=== PATIENT | male | born 2005 | race Caucasian/White ===

== ENCOUNTER 2023-09-23 13:04 | Emergency (ER) | payer OTHER ==
[~2023-09-23] VITALS: Ht 175.3 cm; Wt 61.2 kg
[2023-09-23 13:33] VITALS: BP 145/76
== END 2023-09-23 14:50 | disposition home or self-care (01) ==
LOC: ER 13:04
DX: J34.89 Other specified disorders of nose and nasal sinuses (principal); Y04.0XXA Assault by unarmed brawl or fight, initial encounter; Y92.810 Car as the place of occurrence of the external cause
CPT/HCPCS: 99283